=== PATIENT | female | born 1940 | race Caucasian/White ===

== ENCOUNTER → 2019-03-14 | Outpatient (CLI) | payer OTHER, MEDICARE ==
[~2019-03-14] MED LIST: ACETAMINOPHEN325 M1 PO; ANCEF 1GM1 GM/50 M1 IV; ASPIRIN EC81 M1 PO; ATIVAN1 MG PO; CALTRATE-600 W1 EACH PO; COLACE100 MG PO; GLYCOLAX POWDER17 G1 PO; GNP TRIPLE OME1 EACH PO; HCTZ PO; HYDROCHLOROTHIA25 M2 PO; HYDROCODON-ACE1 EAC8 PO; KEFLEX500 MG PO; LACTULOSE10 GM/152 PO; LEVOTHROID50 MCG PO; LEVOTHYROXINE0.05 MG PO; MIRALAX17 GM PO; MOBIC15 MG PO; NABUMETONE 750750 M1 PO; OXYCONTIN CR 1010 MG PO; PAROXETINE HCL20 MG PO; TRAMADOL 50 MG50 MG PO; ZETIA10 MG PO; [UNRECOGNIZED DRUG - OTHER] PO
== END ==
LOC: ULTRA 12:37
DX: E04.2 Nontoxic multinodular goiter (principal); C50.911 Malignant neoplasm of unspecified site of right female breast